=== PATIENT | male | born 1995 | race Hispanic/Latino ===

== ENCOUNTER 2023-07-11 18:51 | Emergency (ER) | payer BC, OTHER ==
[~2023-07-11] VITALS: Ht 180.3 cm; Wt 146.1 kg
[2023-07-11] MEDS ORDERED: FAMOTIDINE 20MG VIAL IV ONE (19:30)
[2023-07-11] MEDS ORDERED: ASPIRIN 325MG TAB PO ONE (19:30)
[2023-07-11 19:32] LABS: BASOPHILS # (AUTO) 0.03 K/uL (0.00-0.20); BASOPHILS % (AUTO) 0.5 % (0.0-5.0); EOSINOPHILS # (AUTO) 0.03 K/uL (0.00-0.70); EOSINOPHILS % (AUTO) 0.5 % (0.0-8.0); HEMATOCRIT 46.3 % (42-54); IMMATURE GRANULOCYTE ABSOLUTE 0.07 K/uL (0-1); LYMPHOCYTES # (AUTO) 1.4 K/uL (1.0-4.8); LYMPHOCYTES % (AUTO) 21.5 % (21.0-51.0); MEAN CORPUSCULAR HEMOGLOBIN 29.2 pg (27.0-33.0); MEAN CORPUSCULAR HGB CONC 34.8 g/dL (32.0-36.0); MONOCYTES # (AUTO) 0.6 K/uL (0.1-1.0); MONOCYTES % (AUTO) 9.2 % (3.0-13.0); NEUTROPHILS # (AUTO) 4.2 K/uL (1.8-7.7); NEUTROPHILS % (AUTO) 67.2 % (40.0-77.0); PLATELET COUNT (AUTO) 229 K/uL (130-400); RED BLOOD CELL COUNT(AUTO) 5.51 MIL/uL (4.50-6.20); RED CELL DISTRIBUTION WIDTH 11.9 % (11.0-15.5); WHITE BLOOD COUNT (AUTO) 6.3 K/uL (4.8-10.8)
[2023-07-11 19:44] LABS: POTASSIUM 3.5 mmol/L (3.5-5.1)
[2023-07-11] MEDS: 0.9%NACL 1000ML 1,000 ML IV SCH ×2 (19:48→23:22)
[2023-07-11] MEDS ORDERED: INSULIN HUMULIN R 100 UNIT/ML 3ML IV STA (19:49)
[2023-07-11 19:53] LABS: ALBUMIN 3.9 g/dL (3.5-5.0); BILIRUBIN,TOTAL 1.1 mg/dL (0.2-1.0); TOTAL PROTEIN, SERUM 7.9 g/dL (6.0-8.3)
[2023-07-11] MEDS ORDERED: MAG/ALUM/SIMETH 30 ML UDCUP PO ONE (20:00)
[2023-07-11] MEDS ORDERED: 0.9%NACL 1000ML 1,000 ML IV ONE (22:00)
[2023-07-11 22:22] LABS: ADD UA MICROSCOPIC YES; APPEARANCE,URINE CLEAR (CLEAR); BILIRUBIN,URINE NEGATIVE (NEGATIVE); COLOR,URINE LIGHT-YELLOW (YELLOW); GLUCOSE, URINE (UA) >=1000 mg/dL (NEGATIVE); KETONES,URINE >=80 mg/dL (NEGATIVE); LEUKOCYTE ESTERASE ,URINE NEGATIVE Leu/uL (NEGATIVE); NITRATE,URINE NEGATIVE (NEGATIVE); PH,URINE 5.5 (5.0-8.0); PROTEIN,URINE 20 mg/dL (NEGATIVE); UROBILINOGEN,URINE 0.2 mg/dL (0.2-1.0)
[2023-07-11 22:24] LABS: BACTERIA,URINE RARE /HPF (None Seen); MUCUS,URINE RARE LPF (None Seen); SQUAMOUS EPITHELIAL CELL,UR RARE /HPF (0-2)
[2023-07-11 23:11] VITALS: BP 140/85; PULSE 81; RESP 18; O2SAT 100
[2023-07-11] MEDS ORDERED: OMEP40CA21 PO (23:12)
[2023-07-11] MEDS ORDERED: METF-446 PO (23:12)
[2023-07-11] MEDS ORDERED: GLIP5TAB15 PO (23:12)
== END 2023-07-11 23:27 | disposition home or self-care (01) ==
LOC: EDH 18:51
DX: R07.89 Other chest pain (principal); E11.65 Type 2 diabetes mellitus with hyperglycemia; E86.0 Dehydration; E66.9 Obesity, unspecified; E87.1 Hypo-osmolality and hyponatremia; Z79.84 Long term (current) use of oral hypoglycemic drugs; Z68.42 Body mass index [BMI] 45.0-49.9, adult
CPT/HCPCS: 99284; 96374; 71045; 96361; 96375; 84484; 80053; 83690; 85025; 82010; 81001; 36415; 93005; J1815; J3490; J7030

== ENCOUNTER 2023-07-22 22:25 | Emergency (ER) | payer BC ==
[~2023-07-22] VITALS: Ht 180.3 cm; Wt 131.5 kg
[~2023-07-22 22:25] MED LIST: GLIP5TAB15 PO; METF-446 PO; OMEP40CA21 PO
[2023-07-22 22:27] VITALS: BP 178/109; PULSE 83; RESP 20
[2023-07-22 22:51] LABS: SARS-CoV-2, RNA, NAAT NEGATIVE SARS CoV-2 (NEGATIVE)
[2023-07-22 23:15] LABS: APPEARANCE,URINE CLEAR (CLEAR); BASOPHILS # (AUTO) 0.01 K/uL (0.00-0.20); BASOPHILS % (AUTO) 0.2 % (0.0-5.0); BILIRUBIN,URINE NEGATIVE (NEGATIVE); COLOR,URINE LIGHT-YELLOW (YELLOW); EOSINOPHILS # (AUTO) 0.07 K/uL (0.00-0.70); EOSINOPHILS % (AUTO) 1.2 % (0.0-8.0); GLUCOSE, URINE (UA) NEGATIVE (NEGATIVE); HEMATOCRIT 43.2 % (42-54); IMMATURE GRANULOCYTE ABSOLUTE 0.02 K/uL (0-1); KETONES,URINE 40 mg/dL (NEGATIVE); LEUKOCYTE ESTERASE ,URINE NEGATIVE Leu/uL (NEGATIVE); LYMPHOCYTES # (AUTO) 1.2 K/uL (1.0-4.8); LYMPHOCYTES % (AUTO) 21.5 % (21.0-51.0); MEAN CORPUSCULAR HEMOGLOBIN 28.9 pg (27.0-33.0); MEAN CORPUSCULAR HGB CONC 33.8 g/dL (32.0-36.0); MEAN CORPUSCULAR VOLUME 85.5 fL (79-99); MONOCYTES # (AUTO) 0.7 K/uL (0.1-1.0); MONOCYTES % (AUTO) 11.9 % (3.0-13.0); NEUTROPHILS # (AUTO) 3.7 K/uL (1.8-7.7); NEUTROPHILS % (AUTO) 64.9 % (40.0-77.0); NITRATE,URINE NEGATIVE (NEGATIVE); OCCULT BLOOD,URINE NEGATIVE (NEGATIVE); PLATELET COUNT (AUTO) 228 K/uL (130-400); PROTEIN,URINE NEGATIVE (NEGATIVE); RED BLOOD CELL COUNT(AUTO) 5.05 MIL/uL (4.50-6.20); RED CELL DISTRIBUTION WIDTH 12.2 % (11.0-15.5); UROBILINOGEN,URINE 0.2 mg/dL (0.2-1.0); WHITE BLOOD COUNT (AUTO) 5.7 K/uL (4.8-10.8)
[2023-07-22 23:18] LABS: ADD UA MICROSCOPIC YES
[2023-07-22 23:20] LABS: RBC,URINE 0-1 /HPF (0-1)
[2023-07-22 23:21] LABS: BACTERIA,URINE None Seen /HPF (None Seen); SQUAMOUS EPITHELIAL CELL,UR Few /HPF (0-2)
[2023-07-22 23:22] LABS: MUCUS,URINE Rare LPF (None Seen)
[2023-07-22 23:28] LABS: CREATININE 0.9 mg/dL (0.5-1.5); POTASSIUM 3.3 mmol/L (3.5-5.1)
[2023-07-22 23:34] LABS: BILIRUBIN,TOTAL 1.9 mg/dL (0.2-1.0); TOTAL PROTEIN, SERUM 7.6 g/dL (6.0-8.3)
[2023-07-23] MEDS: IBUPROFEN 800 MG TAB PO ONE (01:34)
[2023-07-23] MEDS ORDERED: POLY17PO4 PO (04:32)
== END 2023-07-23 05:25 | disposition home or self-care (01) ==
LOC: EDH 22:25
DX: R10.9 Unspecified abdominal pain (principal); K59.00 Constipation, unspecified; E11.9 Type 2 diabetes mellitus without complications; Z79.84 Long term (current) use of oral hypoglycemic drugs; Z68.41 Body mass index [BMI] 40.0-44.9, adult; Z79.899 Other long term (current) drug therapy; Z20.822 Contact with and (suspected) exposure to COVID-19
CPT/HCPCS: 36415; 74018; 80053; 81001; 83690; 85025; 87635